=== PATIENT | male | born 1940 ===

== ENCOUNTER 2017-01-06 18:02 | Inpatient (IN) | payer MEDICARE, MEDICAID ==
[2017-01-06 18:03] VITALS: BMI 23.2
[2017-01-06] MEDS ORDERED: (Novolin R) Insulin Human Regular 100 units/ml vial ONE ×3 (18:56→22:50)
[2017-01-06] MEDS ORDERED: Sodium Chloride 0.9% 1,000 ML ONE (18:56)
[2017-01-06 18:57] LABS: BASO % 0.1 % (0.0-2.0); EOS # 0.3 K/uL (0.0-0.7); EOS % 2.1 % (0.0-4.0); HEMATOCRIT 31.6 % (35.0-51.0); LYMPH # 2.1 K/uL (1.0-4.3); LYMPH % 15.9 % (20.0-40.0); MEAN CORPUSCULAR HEMOGLOBIN 23.6 pg (27.0-31.0); MEAN CORPUSCULAR HGB CONC 30.9 g/dL (33.0-37.0); MEAN PLATELET VOLUME 8.9 fL (7.2-11.7); MONO # 0.8 K/uL (0.0-0.8); MONO % 6.2 % (0.0-10.0); RED CELL DISTRIBUTION WIDTH 16.2 % (11.5-14.5)
[2017-01-06 19:00] LABS: MEAN CELL VOLUME 76.4 fL (80.0-94.0)
[2017-01-06 19:06] LABS: CHLORIDE 104 mmol/L (98-107); POTASSIUM 4.1 mmol/L (3.6-5.2); SODIUM 133 mmol/L (132-148)
[2017-01-06 19:08] LABS: BILIRUBIN,TOTAL 0.3 mg/dL (0.2-1.3); GFR AFRICAN-AMERICAN > 60
[2017-01-06 19:09] LABS: ALB/GLOB RATIO 1.2 (1.0-2.1); ALKALINE PHOSPHATASE 58 U/L (38-126); ALT/SGPT 32 U/L (21-72); AST/SGOT 18 U/L (17-59); BLOOD UREA NITROGEN 15 mg/dL (9-20); CALCIUM 8.7 mg/dl (8.6-10.4); CARBON DIOXIDE 15 mmol/L (22-30); TOTAL PROTEIN 7.7 g/dL (6.3-8.3)
[2017-01-06] MEDS ORDERED: Sodium Chloride 0.9% 500 ML IV ONE (19:13)
--- NOTE | 2017-01-06 19:17 | C.PDOC ---
History Of Present Illness 76 y/o male with PMHx of DM presents to ED for evaluation status post syncope episode. As per family at bedside patient was shopping at [facility] when he had a syncope episode. Patient is insulin dependent and at ED patient complaints of headache and blurry vision, accucheck was >400. Patient denies any symptoms prior to syncope episode and currently denies chest pain, nausea, vomiting, diarrhea, abdominal pain or any other complaints at this time. Chief Complaint (Nursing): Syncope History Per: Patient, Family History/Exam Limitations: language barrier Onset/Duration Of Symptoms: Hrs Current Symptoms Are (Timing): Still Present Past Medical History Reviewed: Historical Data, Nursing Documentation, Vital Signs Vital Signs: Last Vital Signs Temp 97.2 F L 01/07/17 00:38 Pulse 75 01/07/17 00:38 Resp 20 01/07/17 00:38 BP 165/83 H 01/07/17 00:38 Pulse Ox 100 01/07/17 00:38 - Medical History PMH: HTN, Hypothyroidism (?) Surgical History: No Surg Hx - [facility] Procedures CATARAC PHACOEMULS/ASPIR (10/04/12) CIRCUMCISION (10/17/14) INSERT LENS AT CATAR EXT (10/04/12) Family History: States: No Known Family Hx - Social History Hx Alcohol Use: Yes Hx Substance Use: No - Immunization History Hx Tetanus Toxoid Vaccination: No Hx Influenza Vaccination: No Hx Pneumococcal Vaccination: No Review Of Systems Except As Marked, All Systems Reviewed And Found Negative. Eyes: Positive for: Vision Change Gastrointestinal: Negative for: Nausea, Vomiting Neurological: Positive for: Headache Physical Exam - Physical Exam Appears: Non-toxic, No Acute Distress Skin: Normal Color, Warm, Dry, No Rash Head: Atraumatic, Normacephalic Eye(s): bilateral: Other ((+)nystagmus. (+)bilateral cataracts ) Oral Mucosa: Moist Tongue: Normal Appearing Lips: Normal Appearing Neck: Normal ROM, Supple Cardiovascular: Rhythm Regular Respiratory: Normal Breath Sounds, No Rales, No Rhonchi, No Wheezing, Other (CTA ) Gastrointestinal/Abdominal: Bowel Sounds (active), Soft, No Tenderness, No Guarding, No Rebound Extremity: Normal ROM, Capillary Refill (<2 seconds) Neurological/Psych: Oriented x3, Normal Speech, Normal Cranial Nerves, Normal Motor (5/5 ), Normal Sensation ED Course And Treatment - Laboratory Results Result Diagrams: 01/06/17 18:52 01/06/17 18:52 ECG: Interpreted By Me ECG Interpretation: Normal, No Acute Changes Interpretation Of ECG: q waves to 3,Avf c/w old IWMI Rate From EC O2 Sat by Pulse Oximetry: 100 (RA) Pulse Ox Interpretation: Normal - Radiology CXR: Interpreted by Me, Viewed By Me CXR Interpretation: Yes: Cardiomegaly (Mild) - CT Scan/US Head Other Rad Studies (CT/US): Interpreted By Me, Read By Radiologist CT/US Interpretation: IMPRESSION: 1. Nonspecific white matter changes. Acute infarction may be CT occult within first 24 hours. If a. focal deficit persists , consider followup CT or MRI for further evaluation. 2. Incidental/non-acute findings are described above. Angio Chest Other Rad Studies (CT/US): Interpreted By Me, Read By Radiologist CT/US Interpretation: IMPRESSION: 1. No definite CT evidence of pulmonary embolism. 2. Incidental/non-acute findings are described above. Medical Decision Making Medical Decision Making: Impression: Plan: CT scan Head, IV fluids, Blood work, UA, ECG, CXR Progress: Review of labs Mild leukocytosis , mild anemia, elevated blood glucose 417 with normal Anion gap CT chest ordered for pulmonary embolism rule out since he had syncopal episode and D-dimer is elevated Disposition - Disposition Disposition: HOSPITALIZED Disposition Time: 00:41 Condition: FAIR - Clinical Impression Clinical Impression: Syncope, Vertigo - Scribe Statement The provider has reviewed the documentation as recorded by the Melvin Ellison All medical record entries made by the Melvin were at my direction and personally dictated by me. I have reviewed the chart and agree that the record accurately reflects my personal performance of the history, physical exam, medical decision making, and the department course for this patient. I have also personally directed, reviewed, and agree with the discharge instructions and disposition. Decision To Admit - Pt Status Changed To: Hospital Disposition Of: Inpatient - Admit Certification Admit to Inpatient:: After my assessment, the patient will require hospitalization for at least two midnights. This is because of the severity of symptoms shown, intensity of services needed, and/or the medical risk in this patient being treated as an outpatient. - InPatient: Physician Admission Certification: I certify that this patient requires 2 or more midnights of care for the following reason:: syncope,vertigo,hyperglycemia - . Bed Request Type: Telemetry Admitting Physician: Fabiana Chávez Patient Diagnosis: Vertigo, Syncope
--- NOTE | 2017-01-06 19:18 | C.PDOC ---
Chief Complaint (Nursing): Syncope Past Medical History Vital Signs: Last Vital Signs Temp 97.5 F L 01/06/17 18:08 Pulse 94 H 01/06/17 18:08 Resp 20 01/06/17 18:08 BP 208/107 H 01/06/17 18:08 Pulse Ox 100 01/06/17 18:08 - Medical History PMH: HTN, Hypothyroidism (?) Denies: Chronic Kidney Disease - [facility] Procedures CATARAC PHACOEMULS/ASPIR (10/04/12) CIRCUMCISION (10/17/14) INSERT LENS AT CATAR EXT (10/04/12) - Social History Hx Alcohol Use: Yes Hx Substance Use: No - Immunization History Hx Tetanus Toxoid Vaccination: No Hx Influenza Vaccination: No Hx Pneumococcal Vaccination: No ED Course And Treatment - Laboratory Results Result Diagrams: 01/06/17 18:52 O2 Sat by Pulse Oximetry: 100 Disposition - Disposition
[2017-01-06 19:22] LABS: GLUCOSE,RANDOM 417 mg/dL (75-110)
[2017-01-06] MEDS ORDERED: (Novolin R) Insulin Human Regular 100 units/ml vial IV ONE ×4 (19:41→22:28)
--- NOTE | 2017-01-06 19:57 | CT ---
EXAM: CT Head Without Intravenous Contrast CLINICAL HISTORY: 76 years old, male; Condition or disease; Headache; Headache not specified TECHNIQUE: Axial computed tomography images of the head/brain without intravenous contrast. All CT scans at this facility use one or more dose reduction techniques, viz.: automated exposure control; ma/kV adjustment per patient size (including targeted exams where dose is matched to indication; i.e. head); or iterative reconstruction technique. Coronal reformatted images were created and reviewed. COMPARISON: No relevant prior studies available. FINDINGS: Brain: Moderate atrophy. No intracranial hemorrhage. No mass. Few scattered subtle foci of decreased attenuation within periventricular/subcortical white matter. No definite edema. Ventricles: No hydrocephalus. Bones/joints: No acute fracture. Soft tissues: Unremarkable. Vasculature: Mild atherosclerotic disease of intracranial arteries. Sinuses: Scattered minimal to mild mucosal thickening. Mastoid air cells: No mastoid effusion. Orbits: Unremarkable as visualized. IMPRESSION: 1. Nonspecific white matter changes. Acute infarction may be CT occult within first 24 hours. If a focal deficit persists, consider followup CT or MRI for further evaluation. 2. Incidental/non-acute findings are described above.
[2017-01-06] MEDS ORDERED: Iodixanol 320 MG/ML 100 ML BOTTLE IV ONE (20:14)
[2017-01-06] MEDS ORDERED: Metoprolol Succinate 25 mg XL Tab PO STA (21:05)
[2017-01-06 22:13] LABS: RBC URINE < 1 /hpf (0-3); URINE BILIRUBIN NEGATIVE (NEGATIVE); URINE BLOOD TRACE (NEGATIVE); URINE COLOR Straw (YELLOW); URINE GLUCOSE (UA) 3+ mg/dL (Normal); URINE KETONE NEGATIVE (NEGATIVE); URINE LEUKOCYTE ESTERASE NEG Leu/uL (Negative); URINE PROTEIN 1+ mg/dL (NEGATIVE); URINE UROBILINOGEN NORMAL mg/dL (0.2-1.0); WBC URINE < 1 /hpf (0-5)
--- NOTE | 2017-01-06 22:13 | CT ---
EXAM: CT Angiography Chest With Intravenous Contrast CLINICAL HISTORY: 76 years old, male; Pain; Chest wall pain; Additional info: Syncope, ddimer elevation TECHNIQUE: Axial computed tomographic angiography images of the chest with intravenous contrast using pulmonary embolism protocol. All CT scans at this facility use one or more dose reduction techniques, viz.: automated exposure control; ma/kV adjustment per patient size (including targeted exams where dose is matched to indication; i.e. head); or iterative reconstruction technique. MIP reconstructed images were created and reviewed. Coronal and sagittal reformatted images were created and reviewed. CONTRAST: 100 mL of V ISIPAQUE 320- administered intravenously. COMPARISON: No relevant prior studies available. FINDINGS: Limitations: Motion artifact - mild to moderate. Pulmonary arteries: No definite pulmonary embolism. Aorta: Minimal atherosclerotic disease. No aneurysm. Lungs: Mild atelectasis/scarring. No consolidation. Pleural space: No significant effusion. No pneumothorax. Heart: No cardiomegaly. No significant pericardial effusion. Valvular calcifications. Bones/joints: Moderate compression deformity L1 vertebral body, chronic. No acute fracture. No dislocation. Soft tissues: Unremarkable. Lymph nodes: No pathologically enlarged lymph nodes. Adrenals: Probable adenomatous hypertrophy of adrenal glands. IMPRESSION: 1. No definite CT evidence of pulmonary embolism. 2. Incidental/non-acute findings are described above.
[2017-01-07] MEDS: Levothyroxine 100 MCG TAB PO SCH (05:42)
--- NOTE | 2017-01-07 07:46 | RAD ---
PROCEDURE: CHEST RADIOGRAPH, 1 VIEW HISTORY: chest pain COMPARISON: Chest radiographs 10/10/2014. FINDINGS: LUNGS: No acute infiltrate bilaterally. PLEURA: No pneumothorax or pleural fluid seen. CARDIOVASCULAR: Normal. OSSEOUS STRUCTURES: No significant abnormalities. VISUALIZED UPPER ABDOMEN: Normal. OTHER FINDINGS: None. IMPRESSION: No interval acute cardiopulmonary disease appreciated.
[2017-01-07] MEDS: Enoxaparin 40 mg Syringe SC SCH (09:55)
[2017-01-07] MEDS ORDERED: Pantoprazole 20 mg EC Tab PO SCH (10:00)
[2017-01-07 12:30] LABS: RBC URINE 3 /hpf (0-3); URINE BILIRUBIN NEGATIVE (NEGATIVE); URINE BLOOD 1+ (NEGATIVE); URINE COLOR Yellow (YELLOW); URINE GLUCOSE (UA) 3+ mg/dL (Normal); URINE KETONE NEGATIVE (NEGATIVE); URINE LEUKOCYTE ESTERASE NEG Leu/uL (Negative); URINE PROTEIN 1+ mg/dL (NEGATIVE); URINE UROBILINOGEN NORMAL mg/dL (0.2-1.0); WBC URINE 1 /hpf (0-5)
--- NOTE | 2017-01-07 13:33 | CP.PCM.CON ---
History of Present Illness - History of Present Illness History of Present Illness: 76 y/o male with PMHx of DM presents to ED for evaluation status post syncope episode. As per family at bedside patient was shopping at [facility] when he had a syncope episode. Patient is insulin dependent and at ED patient complaints of headache and blurry vision, accucheck was >400. Patient denies any symptoms prior to syncope episode and currently denies chest pain, nausea, vomiting, diarrhea, abdominal pain or any other complaints at this time. Patient is [place] speaking [place]Citizen [place]' male; currently in MRI could not be examined Per : usually active for age, only medical problem is DM with baseline sugars in 200-250 range: Had normal lunch that day and walked to [facility] and while standing in grocery store felt nausea, vomited x1 and passed out: denied any CP or SOB, normal recovery but sugars reported 400's. PMHX: DM chronic labile, HTN chronic labile, LIPIDS chronic on Rx PSHX: cataracts, no PCI or CABG SOCHX: no tobacco, no substance abuse ROS: no fevers, chills, constitutional symptoms, all 12 systems neg except for HPI. Physical exam: not performed as patient in MRI Past Patient History - Past Medical History & Family History Past Medical History?: Yes - Past Social History Smoking Status: Unknown If Ever Smoked - CARDIAC Hx Cardiac Disorders: Yes Hx Hypertension: Yes - PULMONARY Hx Respiratory Disorders: No - NEUROLOGICAL Hx Neurological Disorder: No - HEENT Hx HEENT Problems: Yes Hx Cataracts: Yes (BILAT. BILAT WITH IOL) - RENAL Hx Chronic Kidney Disease: No - ENDOCRINE/METABOLIC Hx Hypothyroidism: Yes - HEMATOLOGICAL/ONCOLOGICAL Hx Blood Disorders: No - INTEGUMENTARY Hx Dermatological Problems: No - MUSCULOSKELETAL/RHEUMATOLOGICAL Hx Musculoskeletal Disorders: No Hx Falls: No - GASTROINTESTINAL Hx Gastrointestinal Disorders: No - GENITOURINARY/GYNECOLOGICAL Hx Genitourinary Disorders: Yes Other/Comment: DX: PHIMOSIS - PSYCHIATRIC Hx Psychophysiologic Disorder: Yes Hx Substance Use: No - SURGICAL HISTORY Hx Surgeries: Yes Hx Cataract Extraction: Yes (BILAT. IOL IMPLANTS) - ANESTHESIA Hx Anesthesia: Yes Hx Anesthesia Reactions: No Hx Malignant Hyperthermia: No Meds Allergies/Adverse Reactions: Allergies Allergy/AdvReac Type Severity Reaction Status Date / Time No Known Allergies Allergy Verified 01/06/17 18:11 - Medications Medications: Current Medications Amlodipine Besylate (Norvasc) 10 mg PO DAILY [facility] Aspirin (Aspirin Chewable) 81 mg PO DAILY [facility] Enoxaparin Sodium (Lovenox) 40 mg SC DAILY [facility] Last Admin: 01/07/17 09:55 Dose: 40 mg Glimepiride (Amaryl) 2 mg PO TID [facility] Last Admin: 01/07/17 10:00 Dose: Not Given Home Med (Fosamax) 70 mg PO QWK [facility] Home Med (Liraglutide [Victoza 2-Jorje]) 1.2 mg SQ DAILY [facility] Sodium Chloride (Sodium Chloride 0.9%) 1,000 mls @ 40 mls/hr IV .Q24H [facility] Insulin Glargine (Lantus) 30 unit SC HS [facility] Levothyroxine Sodium (Synthroid) 100 mcg PO DAILY@0630 [facility] Last Admin: 01/07/17 05:42 Dose: 100 mcg Losartan Potassium (Cozaar) 25 mg PO DAILY [facility] Metformin HCl (Glucophage) 1,000 mg PO BID [facility] Last Admin: 01/07/17 10:00 Dose: Not Given Metoprolol Succinate (Toprol Xl) 25 mg PO DAILY [facility] Multivitamins (Hexavitamin) 1 tab PO DAILY [facility] Ondansetron HCl (Zofran Inj) 4 mg IVP Q8H PRN PRN Reason: Nausea/Vomiting Last Admin: 01/07/17 09:52 Dose: 4 mg Pantoprazole Sodium (Protonix Inj) 40 mg IVP DAILY [facility] Last Admin: 01/07/17 10:35 Dose: 40 mg Rosuvastatin Calcium (Crestor) 10 mg PO [facility] Results - Vital Signs Recent Vital Signs: Last Vital Signs Temp 97.5 F L 01/07/17 08:07 Pulse 69 01/07/17 08:07 Resp 20 01/07/17 08:07 BP 173/80 H 01/07/17 08:07 Pulse Ox 99 01/07/17 08:07 - Labs Result Diagrams: 01/06/17 18:52 01/06/17 18:52 Labs: Laboratory Results - last 24 hr 01/06/17 01/06/17 01/06/17 18:16 18:52 18:52 WBC 13.0 H RBC 4.14 L Hgb 9.8 L D Hct 31.6 L MCV 76.4 L D MCH 23.6 L MCHC 30.9 L RDW 16.2 H Plt Count 298 MPV 8.9 Neut % (Auto) 75.7 H Lymph % (Auto) 15.9 L [place] % (Auto) 6.2 Eos % (Auto) 2.1 Baso % (Auto) 0.1 Neut # 9.8 H Lymph # 2.1 [place] # 0.8 Eos # 0.3 Baso # 0.0 D-Dimer, Quantitative Sodium 133 Potassium 4.1 Chloride 104 Carbon Dioxide 15 L Anion Gap 18 BUN 15 Creatinine 1.0 Est GFR ( Amer) > 60 Est GFR (Non-Af Amer) > 60 POC Glucose (mg/dL) 417 H* Random Glucose 417 H* D Calcium 8.7 Total Bilirubin 0.3 AST 18 ALT 32 Alkaline Phosphatase 58 Total Creatine Kinase CK-MB (Mass) Troponin I < 0.0120 Troponin I, Quant NT-Pro-B Natriuret Pep Total Protein 7.7 Albumin 4.1 Globulin 3.5 Albumin/Globulin Ratio 1.2 Urine Color Urine Clarity Urine pH Ur Specific [place] Urine Protein Urine Glucose (UA) Urine Ketones Urine Blood Urine Nitrate Urine Bilirubin Urine Urobilinogen Ur Leukocyte Esterase Urine WBC (Auto) Urine RBC (Auto) 01/06/17 01/06/17 01/06/17 19:24 19:24 19:54 WBC RBC Hgb Hct MCV MCH MCHC RDW Plt Count MPV Neut % (Auto) Lymph % (Auto) [place] % (Auto) Eos % (Auto) Baso % (Auto) Neut # Lymph # [place] # Eos # Baso # D-Dimer, Quantitative 381 H Sodium Potassium Chloride Carbon Dioxide Anion Gap BUN Creatinine Est GFR ( Amer) Est GFR (Non-Af Amer) POC Glucose (mg/dL) 285 H Random Glucose Calcium Total Bilirubin AST ALT Alkaline Phosphatase Total Creatine Kinase CK-MB (Mass) Troponin I Troponin I, Quant NT-Pro-B Natriuret Pep 198 Total Protein Albumin Globulin Albumin/Globulin Ratio Urine Color Urine Clarity Urine pH Ur Specific [place] Urine Protein Urine Glucose (UA) Urine Ketones Urine Blood Urine Nitrate Urine Bilirubin Urine Urobilinogen Ur Leukocyte Esterase Urine WBC (Auto) Urine RBC (Auto) 01/06/17 01/06/17 01/06/17 21:10 22:02 22:26 WBC RBC Hgb Hct MCV MCH MCHC RDW Plt Count MPV Neut % (Auto) Lymph % (Auto) [place] % (Auto) Eos % (Auto) Baso % (Auto) Neut # Lymph # [place] # Eos # Baso # D-Dimer, Quantitative Sodium Potassium Chloride Carbon Dioxide Anion Gap BUN Creatinine Est GFR ( Amer) Est GFR (Non-Af Amer) POC Glucose (mg/dL) 346 H 347 H Random Glucose Calcium Total Bilirubin AST ALT Alkaline Phosphatase Total Creatine Kinase CK-MB (Mass) Troponin I Troponin I, Quant NT-Pro-B Natriuret Pep Total Protein Albumin Globulin Albumin/Globulin Ratio Urine Color Straw Urine Clarity Clear Urine pH 5.0 Ur Specific [place] 1.027 Urine Protein 1+ H Urine Glucose (UA) 3+ H Urine Ketones Negative Urine Blood Trace H Urine Nitrate Negative Urine Bilirubin Negative Urine Urobilinogen Normal Ur Leukocyte Esterase Neg Urine WBC (Auto) < 1 Urine RBC (Auto) < 1 01/06/17 01/07/17 01/07/17 23:59 00:09 02:23 WBC RBC Hgb Hct MCV MCH MCHC RDW Plt Count MPV Neut % (Auto) Lymph % (Auto) [place] % (Auto) Eos % (Auto) Baso % (Auto) Neut # Lymph # [place] # Eos # Baso # D-Dimer, Quantitative Sodium Potassium Chloride Carbon Dioxide Anion Gap BUN Creatinine Est GFR ( Amer) Est GFR (Non-Af Amer) POC Glucose (mg/dL) 238 H 259 H Random Glucose Calcium Total Bilirubin AST ALT Alkaline Phosphatase Total Creatine Kinase 89 CK-MB (Mass) 1.61 Troponin I Troponin I, Quant < 0.0120 NT-Pro-B Natriuret Pep Total Protein Albumin Globulin Albumin/Globulin Ratio Urine Color Urine Clarity Urine pH Ur Specific [place] Urine Protein Urine Glucose (UA) Urine Ketones Urine Blood Urine Nitrate Urine Bilirubin Urine Urobilinogen Ur Leukocyte Esterase Urine WBC (Auto) Urine RBC (Auto) 01/07/17 01/07/17 01/07/17 06:33 07:38 11:53 WBC RBC Hgb Hct MCV MCH MCHC RDW Plt Count MPV Neut % (Auto) Lymph % (Auto) [place] % (Auto) Eos % (Auto) Baso % (Auto) Neut # Lymph # [place] # Eos # Baso # D-Dimer, Quantitative Sodium Potassium Chloride Carbon Dioxide Anion Gap BUN Creatinine Est GFR ( Amer) Est GFR (Non-Af Amer) POC Glucose (mg/dL) 264 H 296 H Random Glucose Calcium Total Bilirubin AST ALT Alkaline Phosphatase Total Creatine Kinase 136 CK-MB (Mass) 1.80 Troponin I Troponin I, Quant < 0.0120 NT-Pro-B Natriuret Pep Total Protein Albumin Globulin Albumin/Globulin Ratio Urine Color Urine Clarity Urine pH Ur Specific [place] Urine Protein Urine Glucose (UA) Urine Ketones Urine Blood Urine Nitrate Urine Bilirubin Urine Urobilinogen Ur Leukocyte Esterase Urine WBC (Auto) Urine RBC (Auto) 01/07/17 12:08 WBC RBC Hgb Hct MCV MCH MCHC RDW Plt Count MPV Neut % (Auto) Lymph % (Auto) [place] % (Auto) Eos % (Auto) Baso % (Auto) Neut # Lymph # [place] # Eos # Baso # D-Dimer, Quantitative Sodium Potassium Chloride Carbon Dioxide Anion Gap BUN Creatinine Est GFR ( Amer) Est GFR (Non-Af Amer) POC Glucose (mg/dL) Random Glucose Calcium Total Bilirubin AST ALT Alkaline Phosphatase Total Creatine Kinase CK-MB (Mass) Troponin I Troponin I, Quant NT-Pro-B Natriuret Pep Total Protein Albumin Globulin Albumin/Globulin Ratio Urine Color Yellow Urine Clarity Clear Urine pH 5.0 Ur Specific [place] 1.025 Urine Protein 1+ H Urine Glucose (UA) 3+ H Urine Ketones Negative Urine Blood 1+ H Urine Nitrate Negative Urine Bilirubin Negative Urine Urobilinogen Normal Ur Leukocyte Esterase Neg Urine WBC (Auto) 1 Urine RBC (Auto) 3 - EKG Data EKG Interpreted by: Myself EKG shows normal: Sinus rhythm - Imaging and Cardiology Chest x-ray Status: Image reviewed by me (No infiltrate, normal heart size) Assessment & Plan - Assessment and Plan (Free Text) Assessment: Syncope possible vagal mediated, vertigo or due to labile hyperglycemia/ autonomic dysfunction > No arrythmia on TELE > No acute ischemic changes on EKG > Mild anemia, low MCV on CBC > VT ruled out > CT head: no acute pathology > CXR: no signs of CHF or infection > BP is elevated Suggest echo to eval cardiac structure and function f/u MRI results Needs BP and DM control ---> in losartan to 50 daily and consider hydralazine...will follow echo results. Amlodipine Besylate (Norvasc) 10 mg PO DAILY [facility] Aspirin (Aspirin Chewable) 81 mg PO DAILY [facility] Enoxaparin Sodium (Lovenox) 40 mg SC DAILY [facility] Last Admin: 01/07/17 09:55 Dose: 40 mg Glimepiride (Amaryl) 2 mg PO TID [facility] Last Admin: 01/07/17 10:00 Dose: Not Given Home Med (Fosamax) 70 mg PO QWK [facility] Home Med (Liraglutide [Victoza 2-Jorje]) 1.2 mg SQ DAILY [facility] Sodium Chloride (Sodium Chloride 0.9%) 1,000 mls @ 40 mls/hr IV .Q24H [facility] Insulin Glargine (Lantus) 30 unit SC HS [facility] Levothyroxine Sodium (Synthroid) 100 mcg PO DAILY@0630 [facility] Last Admin: 01/07/17 05:42 Dose: 100 mcg Losartan Potassium (Cozaar) 25 mg PO DAILY [facility] Metformin HCl (Glucophage) 1,000 mg PO BID [facility] Last Admin: 01/07/17 10:00 Dose: Not Given Metoprolol Succinate (Toprol Xl) 25 mg PO DAILY [facility] Multivitamins (Hexavitamin) 1 tab PO DAILY [facility] Ondansetron HCl (Zofran Inj) 4 mg IVP Q8H PRN PRN Reason: Nausea/Vomiting Last Admin: 01/07/17 09:52 Dose: 4 mg Pantoprazole Sodium (Protonix Inj) 40 mg IVP DAILY [facility] Last Admin: 01/07/17 10:35 Dose: 40 mg Rosuvastatin Calcium (Crestor) 10 mg PO HS [facility]
[2017-01-07] MEDS: Sodium Chloride 0.9% 1,000 ML IV SCH (13:45)
--- NOTE | 2017-01-07 14:34 | MRI ---
PROCEDURE: MRI BRAIN WITHOUT CONTRAST HISTORY: CVA/syncope COMPARISON: Noncontrast head CT performed on 01/06/2017 TECHNIQUE: Multiplanar, multisequence MR images of the brain were obtained without intravenous contrast enhancement. FINDINGS: HEMORRHAGE: None DWI: There is a large area of restricted diffusion in the almost entirely involving the left cerebellar hemisphere with relative sparing of the superior deep white matter. BRAIN PARENCHYMA: There is subtle T2/FLAIR hyperintense signal corresponding to the area of restricted diffusion with effacement of the cerebellar folia consistent with associated edema. There is no mass effect or midline shift. There is no extra-axial fluid collection. The midline sagittal structures are normal VENTRICLES: There is moderate age-related global parenchymal volume loss and proportionate enlargement of the ventricles and cortical sulci. CRANIUM: There is normal bone marrow signal pattern. ORBITS: Grossly unremarkable. PARANASAL SINUSES/MASTOIDS: There is moderate mucosal thickening in the maxillary sinuses. The remaining included paranasal sinuses and mastoid air cells are predominantly clear. VASCULAR SYSTEM: Skull base flow voids intact. OTHER FINDINGS: None. 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 Associated did mild vasogenic edema without mass effect or midline shift. No hydrocephalus. Moderate age-related global parenchymal volume loss. Critical findings were discussed with nurse Mikayla Laughlin on 01/07/2017 at 2:30 p.m..
[2017-01-07] MEDS: Multiple Vitamins Tab PO SCH (15:10)
[2017-01-07] MEDS: Metoprolol Succinate 25 mg XL Tab PO SCH (15:10)
[2017-01-07] MEDS: Apap-Butalbital-Caffeine 325-50-40mg Tab PO PRN (17:17)
[2017-01-07 17:26] LABS: CHOLESTEROL 112 mg/dL (0-199)
--- NOTE | 2017-01-07 18:30 | CON ---
DATE: 01/07/2017 CHIEF COMPLAINT: Syncope. HISTORY OF PRESENT ILLNESS: A 76-year-old man with history of type 2 diabetes mellitus, uncontrolled; hypertension; dyslipidemia; who presented with syncopal episode while he was shopping at [facility]. He had a syncopal episode. The patient was independent, came to the hospital with diffuse pressure headache, blurry vision. Accu-Chek was more than 400. Initial CAT scan showed no intracranial abnormalities. He had a MRI of the brain which showed an acute left cerebellar infarct which was likely secondary to diffuse atherosclerotic disease and uncontrolled diabetes and high blood pressure. He has some mild dysmetria but headache is much better, hope he is getting Fioricet for his headaches. Cardiology on board. Echocardiogram ordered. A1c is pending. PAST MEDICAL HISTORY: Dyslipidemia, hypertension, and type 2 diabetes. REVIEW OF SYSTEMS: A 14-point review of system is negative except as in the HPI. ALLERGIES: NO KNOWN DRUG ALLERGIES. SOCIAL HISTORY: No illicit drug use, smoking or EtOH abuse. FAMILY HISTORY: Noncontributory MEDICATIONS: Reviewed via nurse reconciliation sheet. PHYSICAL EXAMINATION: VITAL SIGNS: Temperature 97.4, pulse rate 77, blood pressure 170/92, respiratory rate of 18, oxygen saturation 99% via room air. GENERAL: The patient is sitting up in bed, in no acute distress. HEENT: Atraumatic and normocephalic. PERRLA. Extraocular muscles are intact. NECK: Supple. No JVD. No adenopathy noted. LUNGS: Clear to auscultation. No adventitious sounds. HEART: S1 and S2, normal rate and rhythm. No murmurs, rubs, or gallops. ABDOMEN: Soft, nontender, and nondistended. Bowel sounds are present. EXTREMITIES: No clubbing. No cyanosis. Peripheral pulses are 2+. NEUROLOGIC: The patient is alert and oriented to person, place, month, and year. Speech is fluent without any errors. Cranial nerves II through XII are intact. Motor exam: Moves all extremities equally. No pronator drift seen. Sensory exam: Decreased light touch, pinprick, up to calves bilaterally, decreased vibration of the toes. DTRs are 2+ throughout, 1 at the ankles. Coordination: Mild dissymmetry on the left upper extremity. [id number] otherwise intact. Gait deferred for now. LABORATORY DATA: Today's blood sugar is 296. ASSESSMENT AND PLAN: This is a 76-year-old male with past medical history of type 2 diabetes mellitus, uncontrolled; dyslipidemia; hypertension, who had a syncopal episode while shopping at [place]. His syncope is likely secondary to a possible arrhythmia verses vasovagal mediated, and his headaches and blurry vision are secondary to acute left cerebellar infarct with minimal mass effect from diffuse atherosclerotic disease such as uncontrolled diabetes, dyslipidemia, and hypertension. At this time, I recommend: 1. Keep blood pressures now from this 24 hours to get a blood pressure between 120 to 130 mmHg. 2. Aspirin 81 and Plavix 75 mg p.o. daily in addition to Lipitor 80 mg p.o. daily for stroke prevention. 3. Echocardiogram. Follow with cardiology, possibly need a loop recorder placed to evaluate for any arrhythmia given his acute infract. 4. Acute rehab likely PT, OT, speech, and physical therapy. 5. Get a hemoglobin A1c and keep blood pressures between 140 to 180. Diabetic education and diabetic diet indicated. Thank you for this consult. Jc Guerra MD
--- NOTE | 2017-01-07 19:14 | CARD ---
APPROVED REPORT EXAM: Two-dimensional and M-mode echocardiogram with Doppler and color Doppler. Other Information Quality : GoodRhythm : INDICATION Dyspnea Syncope RISK FACTORS Hypertension 2D DIMENSIONS IVSd1.1 (0.7-1.1cm)LVDd4.5 (3.9-5.9cm) PWd1.2 (0.7-1.1cm)LVDs3.3 (2.5-4.0cm) FS (%) 26.6 %LVEF (%)52.2 (>50%) M-Mode DIMENSIONS Left Atrium (MM)3.09 (2.5-4.0cm)Aortic Root3.33 (2.2-3.7cm) Aortic Cusp Exc.1.80 (1.5-2.0cm) Mitral Valve MV E Xjtuqwgz50.8cm/sMV A Iitsppnh498.3cm/sE/A ratio0.6 TDI E/Lateral E'0.0E/Medial E'0.0 Tricuspid Valve TR Peak [id number]/sTR Peak [id number] LEFT VENTRICLE The left ventricle is normal size. There is normal left ventricular wall thickness. The left ventricular function is normal. The left ventricular ejection fraction is within the normal range. There is normal LV segmental wall motion. Transmitral Doppler flow pattern is abnormal. RIGHT VENTRICLE The right ventricle is normal size. ATRIA The left atrium size is normal. The right atrium size is normal. AORTIC VALVE The aortic valve is normal in structure. MITRAL VALVE Mitral regurgitation is trace to mild. TRICUSPID VALVE There is mild tricuspid regurgitation. <Conclusion> Normal LV systoli cufnction. Diastoli cdysfunction. Trace to mild MR. Mild TR. Normal chamber size.
--- NOTE | 2017-01-07 21:37 | CP.PCM.PN ---
Subjective - Date & Time of Evaluation Date of Evaluation: 01/07/17 Objective - Vital Signs/Intake and Output Vital Signs (last 24 hours): Temp Pulse Resp BP Pulse Ox 97.4 F L 77 18 140/70 99 01/07/17 16:00 01/07/17 16:00 01/07/17 16:00 01/07/17 20:00 01/07/17 16:00 Intake and Output: 01/07/17 01/08/17 18:59 06:59 Intake Total 160 Output Total 900 Balance -740 - Medications Medications: Current Medications Acetaminophen/Butalbital/Caffeine (Fioricet) 1 tab PO Q4 PRN PRN Reason: pain Last Admin: 01/07/17 17:17 Dose: 1 tab Amlodipine Besylate (Norvasc) 10 mg PO DAILY [facility] Aspirin (Aspirin Chewable) 81 mg PO DAILY [facility] Last Admin: 01/07/17 16:00 Dose: 81 mg Aspirin (Aspirin Chewable) 81 mg PO DAILY [facility] Clopidogrel Bisulfate (Plavix) 75 mg PO DAILY [facility] Enoxaparin Sodium (Lovenox) 40 mg SC DAILY [facility] Last Admin: 01/07/17 09:55 Dose: 40 mg Famotidine (Pepcid) 20 mg PO BID [facility] Glimepiride (Amaryl) 2 mg PO TID [facility] Last Admin: 01/07/17 17:18 Dose: 2 mg Home Med (Fosamax) 70 mg PO QWK [facility] Home Med (Liraglutide [Victoza 2-Jorje]) 1.2 mg SQ DAILY [facility] Sodium Chloride (Sodium Chloride 0.9%) 1,000 mls @ 40 mls/hr IV .Q24H [facility] Last Admin: 01/07/17 13:45 Dose: 40 mls/hr Insulin Glargine (Lantus) 30 unit SC HS [facility] Levothyroxine Sodium (Synthroid) 100 mcg PO DAILY@0630 [facility] Last Admin: 01/07/17 05:42 Dose: 100 mcg Losartan Potassium (Cozaar) 25 mg PO DAILY [facility] Last Admin: 01/07/17 15:10 Dose: 25 mg Metformin HCl (Glucophage) 1,000 mg PO BID [facility] Last Admin: 01/07/17 17:18 Dose: 1,000 mg Metoprolol Succinate (Toprol Xl) 25 mg PO DAILY [facility] Last Admin: 01/07/17 15:10 Dose: 25 mg Multivitamins (Hexavitamin) 1 tab PO DAILY [facility] Last Admin: 01/07/17 15:10 Dose: 1 tab Ondansetron HCl (Zofran Inj) 4 mg IVP Q8H PRN PRN Reason: Nausea/Vomiting Last Admin: 01/07/17 09:52 Dose: 4 mg Rosuvastatin Calcium (Crestor) 10 mg PO HS [facility] - Labs Labs: 01/06/17 18:52 01/06/17 18:52
--- NOTE | 2017-01-07 21:39 | CP.PCM.HP ---
History of Present Illness - History of Present Illness History of Present Illness: A 76-year-old male with PMHDM, HTN, hypothyroidism presents to the ER for syncope. C/syncopal one episode today. Patient was shopping at [email or web address] when he suddenly had a syncopal attack. Patient fell down, immediately regained consciousness and was able to stand up on his own. Patient is insulin-dependent. C/Oheadache for a few hours. Following the syncopal attack, global, throbbing type, 3/10 in severity, near continuous. C/Oblurring of vision for a few hours. Following the syncopal attack. No C/ chest pain, nausea, vomiting, diarrhea, abdominal pain or any other complaints. Present on Admission - Present on Admission Any Indicators Present on Admission: No Past Patient History - Past Medical History & Family History Past Medical History?: Yes - Past Social History Smoking Status: Unknown If Ever Smoked - CARDIAC Hx Cardiac Disorders: Yes Hx Hypertension: Yes - PULMONARY Hx Respiratory Disorders: No - NEUROLOGICAL Hx Neurological Disorder: No - HEENT Hx HEENT Problems: Yes Hx Cataracts: Yes (BILAT. BILAT WITH IOL) - RENAL Hx Chronic Kidney Disease: No - ENDOCRINE/METABOLIC Hx Hypothyroidism: Yes - HEMATOLOGICAL/ONCOLOGICAL Hx Blood Disorders: No - INTEGUMENTARY Hx Dermatological Problems: No - MUSCULOSKELETAL/RHEUMATOLOGICAL Hx Musculoskeletal Disorders: No Hx Falls: No - GASTROINTESTINAL Hx Gastrointestinal Disorders: No - GENITOURINARY/GYNECOLOGICAL Hx Genitourinary Disorders: Yes Other/Comment: DX: PHIMOSIS - PSYCHIATRIC Hx Psychophysiologic Disorder: Yes Hx Substance Use: No - SURGICAL HISTORY Hx Surgeries: Yes Hx Cataract Extraction: Yes (BILAT. IOL IMPLANTS) - ANESTHESIA Hx Anesthesia: Yes Hx Anesthesia Reactions: No Hx Malignant Hyperthermia: No Meds Home Medications: Home Medication List Medication Instructions Recorded Confirmed Type Acetaminophen/Butalbital/Caf 1 tab PO Q4 PRN tab 01/12/17 Rx [Fioricet] Aspirin [Aspirin Chewable] 81 mg PO DAILY chew 01/12/17 Rx Clopidogrel [Plavix] 75 mg PO DAILY tab 01/12/17 Rx Famotidine [Pepcid] 20 mg PO BID tab 01/12/17 Rx Insulin Glargine, Recombina 30 unit SC HS unit 01/12/17 Rx [Lantus] Levothyroxine [Synthroid] 100 mcg PO DAILY@0630 tab 01/12/17 Rx Meclizine [Meclizine*] 25 mg PO TID tab 01/12/17 Rx Metoprolol Succinate [Toprol XL] 25 mg PO DAILY tab 01/12/17 Rx Multivitamins [Hexavitamin] 1 tab PO DAILY tab 01/12/17 Rx Naproxen [Anaprox DS] 550 mg PO BID PRN tab 01/12/17 Rx Rosuvastatin Calcium [Crestor] 10 mg PO HS tab 01/12/17 Rx amLODIPine [Norvasc] 10 mg PO DAILY tab 01/12/17 Rx Allergies/Adverse Reactions: Allergies Allergy/AdvReac Type Severity Reaction Status Date / Time No Known Allergies Allergy Verified 01/13/17 04:39 Results - Vital Signs Recent Vital Signs: Last Vital Signs Temp 97.4 F L 01/07/17 16:00 Pulse 77 01/07/17 16:00 Resp 18 01/07/17 16:00 BP 140/70 01/07/17 20:00 Pulse Ox 99 01/07/17 16:00 - Labs Result Diagrams: 01/12/17 13:52 01/12/17 13:52 Labs: Laboratory Results - last 24 hr 01/06/17 01/06/17 01/06/17 18:16 21:10 22:02 POC Glucose (mg/dL) 417 H* 346 H Total Creatine Kinase CK-MB (Mass) Troponin I, Quant Triglycerides Cholesterol LDL Cholesterol Direct HDL Cholesterol Urine Color Straw Urine Clarity Clear Urine pH 5.0 Ur Specific [place] 1.027 Urine Protein 1+ H Urine Glucose (UA) 3+ H Urine Ketones Negative Urine Blood Trace H Urine Nitrate Negative Urine Bilirubin Negative Urine Urobilinogen Normal Ur Leukocyte Esterase Neg Urine WBC (Auto) < 1 Urine RBC (Auto) < 1 01/06/17 01/06/17 01/07/17 22:26 23:59 00:09 POC Glucose (mg/dL) 347 H 238 H Total Creatine Kinase 89 CK-MB (Mass) 1.61 Troponin I, Quant < 0.0120 Triglycerides Cholesterol LDL Cholesterol Direct HDL Cholesterol Urine Color Urine Clarity Urine pH Ur Specific [place] Urine Protein Urine Glucose (UA) Urine Ketones Urine Blood Urine Nitrate Urine Bilirubin Urine Urobilinogen Ur Leukocyte Esterase Urine WBC (Auto) Urine RBC (Auto) 01/07/17 01/07/1701/07/17 02:23 06:33 07:38 POC Glucose (mg/dL) 259 H 264 H Total Creatine Kinase 136 CK-MB (Mass) 1.80 Troponin I, Quant < 0.0120 Triglycerides Cholesterol LDL Cholesterol Direct HDL Cholesterol Urine Color Urine Clarity Urine pH Ur Specific [place] Urine Protein Urine Glucose (UA) Urine Ketones Urine Blood Urine Nitrate Urine Bilirubin Urine Urobilinogen Ur Leukocyte Esterase Urine WBC (Auto) Urine RBC (Auto) 01/07/17 01/07/17 01/07/17 11:53 12:08 16:37 POC Glucose (mg/dL) 296 H 280 H Total Creatine Kinase CK-MB (Mass) Troponin I, Quant Triglycerides Cholesterol LDL Cholesterol Direct HDL Cholesterol Urine Color Yellow Urine Clarity Clear Urine pH 5.0 Ur Specific [place] 1.025 Urine Protein 1+ H Urine Glucose (UA) 3+ H Urine Ketones Negative Urine Blood 1+ H Urine Nitrate Negative Urine Bilirubin Negative Urine Urobilinogen Normal Ur Leukocyte Esterase Neg Urine WBC (Auto) 1 Urine RBC (Auto) 3 01/07/17 01/07/17 01/07/17 16:55 16:55 21:14 POC Glucose (mg/dL) 278 H Total Creatine Kinase 165 CK-MB (Mass) 1.76 Troponin I, Quant < 0.0120 Triglycerides 122 Cholesterol 112 LDL Cholesterol Direct 71 HDL Cholesterol 39 Urine Color Urine Clarity Urine pH Ur Specific [place] Urine Protein Urine Glucose (UA) Urine Ketones Urine Blood Urine Nitrate Urine Bilirubin Urine Urobilinogen Ur Leukocyte Esterase Urine WBC (Auto) Urine RBC (Auto)
[2017-01-07] MEDS: (Lantus) Insulin Glargine, Recombinant SC SCH (21:46)
[2017-01-08] MEDS: Levothyroxine 100 MCG TAB PO SCH (06:04)
--- NOTE | 2017-01-08 09:30 | CP.PCM.PN ---
Subjective - Date & Time of Evaluation Date of Evaluation: 01/08/17 Time of Evaluation: 09:33 - Subjective Subjective: EVents reviewed. Require assistance to ambulate to bathroom. Objective - Vital Signs/Intake and Output Vital Signs (last 24 hours): Temp Pulse Resp BP Pulse Ox 98.2 F 83 20 165/88 H 97 01/08/17 08:16 01/08/17 08:16 01/08/17 08:16 01/08/17 08:16 01/08/17 08:16 Intake and Output: 01/08/17 01/08/17 06:59 18:59 Intake Total 940 Output Total 375 Balance 565 - Medications Medications: Current Medications Acetaminophen/Butalbital/Caffeine (Fioricet) 1 tab PO Q4 PRN PRN Reason: pain Last Admin: 01/07/17 17:17 Dose: 1 tab Amlodipine Besylate (Norvasc) 10 mg PO DAILY [facility] Aspirin (Aspirin Chewable) 81 mg PO DAILY [facility] Last Admin: 01/07/17 16:00 Dose: 81 mg Aspirin (Aspirin Chewable) 81 mg PO DAILY [facility] Clopidogrel Bisulfate (Plavix) 75 mg PO DAILY [facility] Enoxaparin Sodium (Lovenox) 40 mg SC DAILY [facility] Last Admin: 01/07/17 09:55 Dose: 40 mg Famotidine (Pepcid) 20 mg PO BID [facility] Last Admin: 01/07/17 19:00 Dose: 20 mg Glimepiride (Amaryl) 2 mg PO TID [facility] Last Admin: 01/07/17 17:18 Dose: 2 mg Home Med (Fosamax) 70 mg PO QWK [facility] Home Med (Liraglutide [Victoza 2-Jorje]) 1.2 mg SQ DAILY [facility] Sodium Chloride (Sodium Chloride 0.9%) 1,000 mls @ 40 mls/hr IV .Q24H [facility] Last Admin: 01/07/17 13:45 Dose: 40 mls/hr Insulin Glargine (Lantus) 30 unit SC HS [facility] Last Admin: 01/07/17 21:46 Dose: 30 unit Levothyroxine Sodium (Synthroid) 100 mcg PO DAILY@0630 [facility] Last Admin: 01/08/17 06:04 Dose: 100 mcg Losartan Potassium (Cozaar) 25 mg PO DAILY [facility] Last Admin: 01/07/17 15:10 Dose: 25 mg Metformin HCl (Glucophage) 1,000 mg PO BID [facility] Last Admin: 01/07/17 17:18 Dose: 1,000 mg Metoprolol Succinate (Toprol Xl) 25 mg PO DAILY [facility] Last Admin: 01/07/17 15:10 Dose: 25 mg Multivitamins (Hexavitamin) 1 tab PO DAILY [facility] Last Admin: 01/07/17 15:10 Dose: 1 tab Ondansetron HCl (Zofran Inj) 4 mg IVP Q8H PRN PRN Reason: Nausea/Vomiting Last Admin: 01/07/17 09:52 Dose: 4 mg Rosuvastatin Calcium (Crestor) 10 mg PO HS [facility] Last Admin: 01/07/17 22:20 Dose: 10 mg Rosuvastatin Calcium (Crestor) 10 mg PO HS [facility] Last Admin: 01/07/17 22:22 Dose: Not Given - Labs Labs: 01/06/17 18:52 01/06/17 18:52 - Constitutional Appears: Well, Older Than Stated Age, Chronically Ill - Head Exam Head Exam: ATRAUMATIC, NORMAL INSPECTION - Eye Exam Eye Exam: PERRL. absent: Scleral icterus - Cardiovascular Exam Cardiovascular Exam: REGULAR RHYTHM, RRR, +S1, +S2. absent: JVD - GI/Abdominal Exam GI & Abdominal Exam: Normal Bowel Sounds. absent: Organomegaly Assessment and Plan - Assessment and Plan (Free Text) Assessment: 2D echo images viewed by me on this visit: Normal LV systolic function. - Assessment and Plan (Free Text) Assessment: Acute Cerebellar vascular accident > No arrythmia on TELE > 2D echo no arrythmogenic substrate > No acute ischemic changes on EKG > Mild anemia, low MCV on CBC > UT ruled out > CT head: no acute pathology > CXR: no signs of CHF or infection > BP is elevated MRI results noted; Neurology to follow up Needs BP and DM control ---> BP targets as per Neuro Dual anti platelet as per neurology Needs high dose of atorvastatin or crestor Insulin sliding scale PT/OT for cerebellar lesions
[2017-01-08] MEDS: Metoprolol Succinate 25 mg XL Tab PO SCH (10:00)
[2017-01-08] MEDS: Enoxaparin 40 mg Syringe SC SCH (10:00)
[2017-01-08] MEDS: Multiple Vitamins Tab PO SCH (10:00)
--- NOTE | 2017-01-08 18:30 | CP.PCM.PN ---
Subjective - Date & Time of Evaluation Date of Evaluation: 01/08/17 Time of Evaluation: 11:40 - Subjective Subjective: clinically same Objective - Vital Signs/Intake and Output Vital Signs (last 24 hours): Temp Pulse Resp BP Pulse Ox 97.7 F 82 20 181/94 H 97 01/08/17 16:00 01/08/17 16:52 01/08/17 16:00 01/08/17 16:52 01/08/17 16:52 Intake and Output: 01/08/17 01/08/17 06:59 18:59 Intake Total 940 Output Total 375 Balance 565 - Medications Medications: Current Medications Acetaminophen/Butalbital/Caffeine (Fioricet) 1 tab PO Q4 PRN PRN Reason: pain Last Admin: 01/07/17 17:17 Dose: 1 tab Amlodipine Besylate (Norvasc) 10 mg PO DAILY [facility] Last Admin: 01/08/17 10:00 Dose: 10 mg Aspirin (Aspirin Chewable) 81 mg PO DAILY [facility] Last Admin: 01/08/17 10:00 Dose: 81 mg Aspirin (Aspirin Chewable) 81 mg PO DAILY [facility] Last Admin: 01/08/17 12:14 Dose: Not Given Clopidogrel Bisulfate (Plavix) 75 mg PO DAILY [facility] Last Admin: 01/08/17 10:00 Dose: 75 mg Enoxaparin Sodium (Lovenox) 40 mg SC DAILY [facility] Last Admin: 01/08/17 10:00 Dose: 40 mg Famotidine (Pepcid) 20 mg PO BID [facility] Last Admin: 01/08/17 17:26 Dose: 20 mg Glimepiride (Amaryl) 2 mg PO TID [facility] Last Admin: 01/08/17 17:27 Dose: 2 mg Home Med (Fosamax) 70 mg PO QWK [facility] Home Med (Liraglutide [Victoza 2-Jorje]) 1.2 mg SQ DAILY [facility] Sodium Chloride (Sodium Chloride 0.9%) 1,000 mls @ 40 mls/hr IV .Q24H [facility] Last Admin: 01/07/17 13:45 Dose: 40 mls/hr Insulin Glargine (Lantus) 30 unit SC HS [facility] Last Admin: 01/07/17 21:46 Dose: 30 unit Levothyroxine Sodium (Synthroid) 100 mcg PO DAILY@0630 [facility] Last Admin: 01/08/17 06:04 Dose: 100 mcg Losartan Potassium (Cozaar) 25 mg PO DAILY [facility] Last Admin: 01/08/17 10:00 Dose: 25 mg Metformin HCl (Glucophage) 1,000 mg PO BID [facility] Last Admin: 01/08/17 17:26 Dose: 1,000 mg Metoprolol Succinate (Toprol Xl) 25 mg PO DAILY [facility] Last Admin: 01/08/17 10:00 Dose: 25 mg Multivitamins (Hexavitamin) 1 tab PO DAILY [facility] Last Admin: 01/08/17 10:00 Dose: 1 tab Ondansetron HCl (Zofran Inj) 4 mg IVP Q8H PRN PRN Reason: Nausea/Vomiting Last Admin: 01/07/17 09:52 Dose: 4 mg Rosuvastatin Calcium (Crestor) 10 mg PO HS [facility] Last Admin: 01/07/17 22:20 Dose: 10 mg Rosuvastatin Calcium (Crestor) 10 mg PO HS [facility] Last Admin: 01/07/17 22:22 Dose: Not Given - Labs Labs: 01/06/17 18:52 01/06/17 18:52 - Constitutional Appears: Well - Head Exam Head Exam: ATRAUMATIC, NORMAL INSPECTION, NORMOCEPHALIC - Eye Exam Eye Exam: EOMI, Normal appearance, PERRL Pupil Exam: NORMAL ACCOMODATION, PERRL - ENT Exam ENT Exam: Mucous Membranes Moist, Normal Exam - Neck Exam Neck Exam: Full ROM, Normal Inspection. absent: Lymphadenopathy - Respiratory Exam Respiratory Exam: Decreased Breath Sounds - Cardiovascular Exam Cardiovascular Exam: REGULAR RHYTHM, +S1, +S2. absent: Murmur - GI/Abdominal Exam GI & Abdominal Exam: Soft, Normal Bowel Sounds. absent: Tenderness - Rectal Exam Rectal Exam: Deferred Assessment and Plan (1) Syncope Status: Acute (2) Vertigo Status: Acute - Assessment and Plan (Free Text) Plan: Patient examined. Chest x-ray normal. EKG shows left axis deviation. Low voltage QRS complex. CT angios chest is not suggestive of pulmonary embolism. CT had suggestive of nonspecific white matter changes. MRI brain suggestive acute left cerebellar infarction involving almost entire cerebellar hemisphere with relative sparing of the deep superior cerebellar white matter. Moderate age-related global parenchymal volume loss. 2D echo normal. Laboratory investigation shows raised random blood sugar on admission. Continue medications for diabetes and hypertension, levothyroxine, aspirin. Continue supportive medications.
[2017-01-08] MEDS: Sodium Chloride 0.9% 1,000 ML IV SCH (21:16)
[2017-01-08] MEDS: (Lantus) Insulin Glargine, Recombinant SC SCH (21:16)
[2017-01-09] MEDS: Levothyroxine 100 MCG TAB PO SCH (06:03)
[2017-01-09] MEDS: Enoxaparin 40 mg Syringe SC SCH (10:29)
[2017-01-09] MEDS: VICTOZA SC SCH (10:29)
[2017-01-09] MEDS: Metoprolol Succinate 25 mg XL Tab PO SCH (10:29)
[2017-01-09] MEDS: Multiple Vitamins Tab PO SCH (10:29)
--- NOTE | 2017-01-09 13:55 | CP.PCM.PN ---
Subjective - Date & Time of Evaluation Date of Evaluation: 01/09/17 Time of Evaluation: 11:40 - Subjective Subjective: clinically same Objective - Vital Signs/Intake and Output Vital Signs (last 24 hours): Temp Pulse Resp BP Pulse Ox 98.0 F 101 H 20 150/90 98 01/09/17 08:21 01/09/17 08:21 01/09/17 08:21 01/09/17 08:21 01/09/17 08:21 Intake and Output: 01/09/17 01/09/17 06:59 18:59 Intake Total 320 Output Total 600 Balance -280 - Medications Medications: Current Medications Acetaminophen/Butalbital/Caffeine (Fioricet) 1 tab PO Q4 PRN PRN Reason: pain Last Admin: 01/07/17 17:17 Dose: 1 tab Amlodipine Besylate (Norvasc) 10 mg PO DAILY [facility] Last Admin: 01/09/17 10:29 Dose: 10 mg Aspirin (Aspirin Chewable) 81 mg PO DAILY [facility] Last Admin: 01/09/17 10:29 Dose: 81 mg Clopidogrel Bisulfate (Plavix) 75 mg PO DAILY [facility] Enoxaparin Sodium (Lovenox) 40 mg SC DAILY [facility] Last Admin: 01/09/17 10:29 Dose: 40 mg Famotidine (Pepcid) 20 mg PO BID [facility] Last Admin: 01/09/17 10:29 Dose: 20 mg Glimepiride (Amaryl) 2 mg PO TID [facility] Last Admin: 01/09/17 13:08 Dose: 2 mg Home Med (Patient's Own Injectable) 1.2 unit SC DAILY [facility] Last Admin: 01/09/17 10:29 Dose: 1.2 unit Sodium Chloride (Sodium Chloride 0.9%) 1,000 mls @ 40 mls/hr IV .Q24H [facility] Last Admin: 01/08/17 21:16 Dose: 40 mls/hr Insulin Glargine (Lantus) 30 unit SC HS [facility] Last Admin: 01/08/17 21:16 Dose: 30 unit Levothyroxine Sodium (Synthroid) 100 mcg PO DAILY@0630 [facility] Last Admin: 01/09/17 06:03 Dose: 100 mcg Losartan Potassium (Cozaar) 25 mg PO DAILY [facility] Last Admin: 01/09/17 10:29 Dose: 25 mg Meclizine HCl (Antivert) 25 mg PO TID [facility] Last Admin: 01/09/17 13:07 Dose: 25 mg Metformin HCl (Glucophage) 1,000 mg PO BID [facility] Last Admin: 01/09/17 10:29 Dose: 1,000 mg Metoprolol Succinate (Toprol Xl) 25 mg PO DAILY [facility] Last Admin: 01/09/17 10:29 Dose: 25 mg Multivitamins (Hexavitamin) 1 tab PO DAILY [facility] Last Admin: 01/09/17 10:29 Dose: 1 tab Ondansetron HCl (Zofran Inj) 4 mg IVP Q8H PRN PRN Reason: Nausea/Vomiting Last Admin: 01/07/17 09:52 Dose: 4 mg Rosuvastatin Calcium (Crestor) 10 mg PO HS [facility] Last Admin: 01/08/17 21:17 Dose: 10 mg - Labs Labs: 01/06/17 18:52 01/06/17 18:52 - Constitutional Appears: Well - Head Exam Head Exam: ATRAUMATIC, NORMAL INSPECTION, NORMOCEPHALIC - Eye Exam Eye Exam: EOMI, Normal appearance, PERRL Pupil Exam: NORMAL ACCOMODATION, PERRL - ENT Exam ENT Exam: Mucous Membranes Moist, Normal Exam - Neck Exam Neck Exam: Full ROM, Normal Inspection. absent: Lymphadenopathy - Respiratory Exam Respiratory Exam: Decreased Breath Sounds - Cardiovascular Exam Cardiovascular Exam: REGULAR RHYTHM, +S1, +S2 - GI/Abdominal Exam GI & Abdominal Exam: Soft, Diminished Bowel Sounds - Rectal Exam Rectal Exam: Deferred Assessment and Plan (1) Syncope Status: Acute (2) Vertigo Status: Acute - Assessment and Plan (Free Text) Plan: Patient examined. The patient clinically the same. Continue aspirin and clopidogrel. Continue antidiabetic and antihypertensive medications. Continue levothyroxine. Continue supportive care.
[2017-01-09] MEDS: (Lantus) Insulin Glargine, Recombinant SC SCH (22:05)
[2017-01-09] MEDS: Sodium Chloride 0.9% 1,000 ML IV SCH (22:05)
[2017-01-10] MEDS: Levothyroxine 100 MCG TAB PO SCH (05:58)
[2017-01-10] MEDS: Enoxaparin 40 mg Syringe SC SCH ×2 (10:42→11:00)
[2017-01-10] MEDS: Multiple Vitamins Tab PO SCH ×2 (10:42→11:01)
[2017-01-10] MEDS: Metoprolol Succinate 25 mg XL Tab PO SCH ×2 (10:43→11:01)
[2017-01-10] MEDS: VICTOZA SC SCH ×2 (10:43→11:00)
[2017-01-10] MEDS: Sodium Chloride 0.9% 1,000 ML IV SCH ×2 (13:42→18:05)
[2017-01-10] MEDS: Naproxen 550 mg Tab PO PRN (18:03)
--- NOTE | 2017-01-10 19:16 | CP.PCM.PN ---
Subjective - Date & Time of Evaluation Date of Evaluation: 01/10/17 Time of Evaluation: 11:00 - Subjective Subjective: clinically same Objective - Vital Signs/Intake and Output Vital Signs (last 24 hours): Temp Pulse Resp BP Pulse Ox 97.8 F 90 20 153/82 H 100 01/10/17 15:00 01/10/17 15:00 01/10/17 15:00 01/10/17 15:00 01/10/17 15:00 Intake and Output: 01/10/17 01/11/17 18:59 06:59 Intake Total 434 Balance 434 - Medications Medications: Current Medications Acetaminophen/Butalbital/Caffeine (Fioricet) 1 tab PO Q4 PRN PRN Reason: pain Last Admin: 01/07/17 17:17 Dose: 1 tab Amlodipine Besylate (Norvasc) 10 mg PO DAILY [facility] Last Admin: 01/10/17 11:01 Dose: 10 mg Aspirin (Aspirin Chewable) 81 mg PO DAILY [facility] Last Admin: 01/10/17 11:01 Dose: 81 mg Clopidogrel Bisulfate (Plavix) 75 mg PO DAILY [facility] Last Admin: 01/10/17 11:01 Dose: 75 mg Enoxaparin Sodium (Lovenox) 40 mg SC DAILY [facility] Last Admin: 01/10/17 11:00 Dose: 40 mg Famotidine (Pepcid) 20 mg PO BID [facility] Last Admin: 01/10/17 17:19 Dose: 20 mg Glimepiride (Amaryl) 2 mg PO TID [facility] Last Admin: 01/10/17 17:19 Dose: 2 mg Home Med (Patient's Own Injectable) 1.2 unit SC DAILY [facility] Last Admin: 01/10/17 11:00 Dose: 1.2 unit Sodium Chloride (Sodium Chloride 0.9%) 1,000 mls @ 40 mls/hr IV .Q24H [facility] Last Admin: 01/10/17 18:05 Dose: Not Given Insulin Glargine (Lantus) 30 unit SC HS [facility] Last Admin: 01/09/17 22:05 Dose: 30 unit Levothyroxine Sodium (Synthroid) 100 mcg PO DAILY@0630 [facility] Last Admin: 01/10/17 05:58 Dose: 100 mcg Losartan Potassium (Cozaar) 25 mg PO DAILY [facility] Last Admin: 01/10/17 11:00 Dose: 25 mg Meclizine HCl (Antivert) 25 mg PO TID [facility] Last Admin: 01/10/17 17:21 Dose: Not Given Metformin HCl (Glucophage) 1,000 mg PO BID [facility] Last Admin: 01/10/17 17:19 Dose: 1,000 mg Metoprolol Succinate (Toprol Xl) 25 mg PO DAILY [facility] Last Admin: 01/10/17 11:01 Dose: 25 mg Multivitamins (Hexavitamin) 1 tab PO DAILY [facility] Last Admin: 01/10/17 11:01 Dose: 1 tab Naproxen (Anaprox Ds) 550 mg PO BID PRN PRN Reason: Pain, moderate (4-7) Last Admin: 01/10/17 18:03 Dose: 550 mg Ondansetron HCl (Zofran Inj) 4 mg IVP Q8H PRN PRN Reason: Nausea/Vomiting Last Admin: 01/07/17 09:52 Dose: 4 mg Rosuvastatin Calcium (Crestor) 10 mg PO HS [facility] Last Admin: 01/09/17 22:05 Dose: 10 mg - Labs Labs: 01/06/17 18:52 01/06/17 18:52 - Constitutional Appears: Well - Head Exam Head Exam: ATRAUMATIC, NORMAL INSPECTION, NORMOCEPHALIC - Eye Exam Eye Exam: EOMI, Normal appearance, PERRL Pupil Exam: NORMAL ACCOMODATION, PERRL - ENT Exam ENT Exam: Mucous Membranes Moist, Normal Exam - Neck Exam Neck Exam: Full ROM, Normal Inspection. absent: Lymphadenopathy - Respiratory Exam Respiratory Exam: Decreased Breath Sounds - Cardiovascular Exam Cardiovascular Exam: REGULAR RHYTHM, +S1, +S2 - GI/Abdominal Exam GI & Abdominal Exam: Soft, Diminished Bowel Sounds - Rectal Exam Rectal Exam: Deferred Assessment and Plan (1) Syncope Status: Acute (2) Vertigo Status: Acute - Assessment and Plan (Free Text) Plan: Patient examined. Patient clinical the same. Continue aspirin and Clopidogrel. Continue antidiabetic and antihypertensive medications. Continue levothyroxine. Continue supportive medications.
[2017-01-10] MEDS: Apap-Butalbital-Caffeine 325-50-40mg Tab PO PRN (20:12)
[2017-01-10] MEDS: (Lantus) Insulin Glargine, Recombinant SC SCH (22:18)
[2017-01-11] MEDS: Sodium Chloride 0.9% 1,000 ML IV SCH ×2 (04:38→17:47)
[2017-01-11] MEDS: Levothyroxine 100 MCG TAB PO SCH (05:52)
[2017-01-11] MEDS: Multiple Vitamins Tab PO SCH (09:41)
[2017-01-11] MEDS: Metoprolol Succinate 25 mg XL Tab PO SCH (09:41)
[2017-01-11] MEDS: VICTOZA SC SCH (09:42)
[2017-01-11] MEDS: Enoxaparin 40 mg Syringe SC SCH (09:42)
[2017-01-11] MEDS: Apap-Butalbital-Caffeine 325-50-40mg Tab PO PRN ×3 (09:44→21:52)
--- NOTE | 2017-01-11 11:06 | CARD ---
APPROVED REPORT EKG Measurement Heart [id number] <Conclusion> Normal sinus rhythm Left axis deviation Low voltage QRS Inferior infarct, age undetermined Abnormal ECG
--- NOTE | 2017-01-11 20:40 | CP.PCM.PN ---
Subjective - Date & Time of Evaluation Date of Evaluation: 01/11/17 Time of Evaluation: 10:00 - Subjective Subjective: clinically same Objective - Vital Signs/Intake and Output Vital Signs (last 24 hours): Temp Pulse Resp BP Pulse Ox 97.5 F L 82 20 131/86 99 01/11/17 15:20 01/11/17 16:00 01/11/17 15:20 01/11/17 15:20 01/11/17 15:20 Intake and Output: 01/11/17 01/12/17 18:59 06:59 Intake Total 509 Balance 509 - Medications Medications: Current Medications Acetaminophen/Butalbital/Caffeine (Fioricet) 1 tab PO Q4 PRN PRN Reason: pain Last Admin: 01/11/17 15:39 Dose: 1 tab Amlodipine Besylate (Norvasc) 10 mg PO DAILY [facility] Last Admin: 01/11/17 09:41 Dose: 10 mg Aspirin (Aspirin Chewable) 81 mg PO DAILY [facility] Last Admin: 01/11/17 09:41 Dose: 81 mg Clopidogrel Bisulfate (Plavix) 75 mg PO DAILY [facility] Last Admin: 01/11/17 09:42 Dose: 75 mg Enoxaparin Sodium (Lovenox) 70 mg SC Q12 [facility] Famotidine (Pepcid) 20 mg PO BID [facility] Last Admin: 01/11/17 17:47 Dose: 20 mg Glimepiride (Amaryl) 2 mg PO TID [facility] Last Admin: 01/11/17 17:47 Dose: 2 mg Home Med (Patient's Own Injectable) 1.2 unit SC DAILY [facility] Last Admin: 01/11/17 09:42 Dose: 1.2 unit Sodium Chloride (Sodium Chloride 0.9%) 1,000 mls @ 40 mls/hr IV .Q24H [facility] Last Admin: 01/11/17 17:47 Dose: Not Given Insulin Glargine (Lantus) 30 unit SC HS [facility] Last Admin: 01/10/17 22:18 Dose: 30 unit Levothyroxine Sodium (Synthroid) 100 mcg PO DAILY@0630 [facility] Last Admin: 01/11/17 05:52 Dose: 100 mcg Losartan Potassium (Cozaar) 25 mg PO DAILY [facility] Last Admin: 01/11/17 09:42 Dose: 25 mg Meclizine HCl (Antivert) 25 mg PO TID [facility] Last Admin: 01/11/17 17:50 Dose: Not Given Metformin HCl (Glucophage) 1,000 mg PO BID [facility] Last Admin: 01/11/17 17:47 Dose: 1,000 mg Metoprolol Succinate (Toprol Xl) 25 mg PO DAILY [facility] Last Admin: 01/11/17 09:41 Dose: 25 mg Multivitamins (Hexavitamin) 1 tab PO DAILY [facility] Last Admin: 01/11/17 09:41 Dose: 1 tab Naproxen (Anaprox Ds) 550 mg PO BID PRN PRN Reason: Pain, moderate (4-7) Last Admin: 01/10/17 18:03 Dose: 550 mg Ondansetron HCl (Zofran Inj) 4 mg IVP Q8H PRN PRN Reason: Nausea/Vomiting Last Admin: 01/07/17 09:52 Dose: 4 mg Rosuvastatin Calcium (Crestor) 10 mg PO HS [facility] Last Admin: 01/10/17 22:18 Dose: 10 mg - Labs Labs: 01/06/17 18:52 01/06/17 18:52 - Constitutional Appears: Well - Head Exam Head Exam: ATRAUMATIC, NORMAL INSPECTION, NORMOCEPHALIC - Eye Exam Eye Exam: EOMI, Normal appearance, PERRL Pupil Exam: NORMAL ACCOMODATION, PERRL - ENT Exam ENT Exam: Mucous Membranes Moist, Normal Exam - Neck Exam Neck Exam: Full ROM, Normal Inspection. absent: Lymphadenopathy - Respiratory Exam Respiratory Exam: Decreased Breath Sounds - Cardiovascular Exam Cardiovascular Exam: REGULAR RHYTHM, +S1, +S2. absent: Murmur - GI/Abdominal Exam GI & Abdominal Exam: Soft, Normal Bowel Sounds. absent: Tenderness - Rectal Exam Rectal Exam: Deferred Assessment and Plan (1) Syncope Status: Acute (2) Vertigo Status: Acute - Assessment and Plan (Free Text) Plan: Patient examined. Patient better. Continue aspirin and clopidogrel. Continue levothyroxine, antidiabetic and antihypertensive medications. Continue supportive care.
[2017-01-11] MEDS: (Lantus) Insulin Glargine, Recombinant SC SCH (21:49)
[2017-01-11] MEDS: Enoxaparin 80 mg Syringe SC SCH (21:49)
[2017-01-12] MEDS: Levothyroxine 100 MCG TAB PO SCH (05:59)
[2017-01-12] MEDS: Naproxen 550 mg Tab PO PRN ×2 (07:04→18:20)
[2017-01-12 08:33] VITALS: O2SAT 100
[2017-01-12] MEDS: VICTOZA SC SCH (11:16)
[2017-01-12] MEDS: Multiple Vitamins Tab PO SCH (11:17)
[2017-01-12] MEDS: Metoprolol Succinate 25 mg XL Tab PO SCH (11:17)
[2017-01-12] MEDS: Enoxaparin 80 mg Syringe SC SCH ×2 (11:18→22:14)
[2017-01-12 13:56] LABS: BASO # 0.1 K/uL (0.0-0.2); BASO % 0.5 % (0.0-2.0); EOS # 0.5 K/uL (0.0-0.7); EOS % 4.5 % (0.0-4.0); HEMATOCRIT 27.2 % (35.0-51.0); LYMPH # 1.3 K/uL (1.0-4.3); LYMPH % 11.6 % (20.0-40.0); MEAN CELL VOLUME 75.3 fL (80.0-94.0); MEAN CORPUSCULAR HEMOGLOBIN 24.2 pg (27.0-31.0); MEAN CORPUSCULAR HGB CONC 32.2 g/dL (33.0-37.0); MEAN PLATELET VOLUME 8.5 fL (7.2-11.7); MONO # 1.1 K/uL (0.0-0.8); MONO % 10.2 % (0.0-10.0); RED CELL DISTRIBUTION WIDTH 15.4 % (11.5-14.5); WHITE BLOOD COUNT 11.1 K/uL (4.8-10.8)
[2017-01-12 14:26] LABS: ALKALINE PHOSPHATASE 55 U/L (38-126); ALT/SGPT 30 U/L (21-72); AST/SGOT 22 U/L (17-59); BILIRUBIN,TOTAL 0.9 mg/dL (0.2-1.3); BLOOD UREA NITROGEN 15 mg/dL (9-20); CALCIUM 7.5 mg/dl (8.6-10.4); CARBON DIOXIDE 21 mmol/L (22-30); CHLORIDE 98 mmol/L (98-107); GFR AFRICAN-AMERICAN > 60; GLUCOSE,RANDOM 174 mg/dL (75-110); POTASSIUM 3.1 mmol/L (3.6-5.2); SODIUM 129 mmol/L (132-148); TOTAL PROTEIN 5.3 g/dL (6.3-8.3)
[2017-01-12 14:31] LABS: ALB/GLOB RATIO 1.4 (1.0-2.1)
[2017-01-12] MEDS ORDERED: Potassium Chloride 20 mEq ER Tab PO SCH (15:30)
--- NOTE | 2017-01-12 17:04 | CP.PCM.PN ---
Subjective - Date & Time of Evaluation Date of Evaluation: 01/12/17 Time of Evaluation: 17:02 - Subjective Subjective: PT SEEN AND EXAMINED TODAY, RESP EASY AND UNLABORED, NAD Objective - Vital Signs/Intake and Output Vital Signs (last 24 hours): Temp Pulse Resp BP Pulse Ox 97.8 F 86 18 124/79 100 01/12/17 07:20 01/12/17 12:20 01/12/17 07:20 01/12/17 07:20 01/12/17 07:20 Intake and Output: 01/12/17 01/12/17 06:59 18:59 Intake Total 920 Output Total 225 Balance -225 920 - Medications Medications: Current Medications Acetaminophen/Butalbital/Caffeine (Fioricet) 1 tab PO Q4 PRN PRN Reason: pain Last Admin: 01/11/17 21:52 Dose: 1 tab Amlodipine Besylate (Norvasc) 10 mg PO DAILY [facility] Last Admin: 01/12/17 11:17 Dose: 10 mg Aspirin (Aspirin Chewable) 81 mg PO DAILY [facility] Last Admin: 01/12/17 11:17 Dose: 81 mg Clopidogrel Bisulfate (Plavix) 75 mg PO DAILY [facility] Last Admin: 01/12/17 11:17 Dose: 75 mg Enoxaparin Sodium (Lovenox) 70 mg SC Q12 [facility] Last Admin: 01/12/17 11:18 Dose: 70 mg Famotidine (Pepcid) 20 mg PO BID [facility] Last Admin: 01/12/17 11:19 Dose: 20 mg Glimepiride (Amaryl) 2 mg PO TID [facility] Last Admin: 01/12/17 13:54 Dose: 2 mg Home Med (Patient's Own Injectable) 1.2 unit SC DAILY [facility] Last Admin: 01/12/17 11:16 Dose: 1.2 unit Sodium Chloride (Sodium Chloride 0.9%) 1,000 mls @ 40 mls/hr IV .Q24H [facility] Last Admin: 01/11/17 17:47 Dose: Not Given Insulin Glargine (Lantus) 30 unit SC HS [facility] Last Admin: 01/11/17 21:49 Dose: 30 unit Levothyroxine Sodium (Synthroid) 100 mcg PO DAILY@0630 [facility] Last Admin: 01/12/17 05:59 Dose: 100 mcg Losartan Potassium (Cozaar) 25 mg PO DAILY [facility] Last Admin: 01/12/17 11:17 Dose: 25 mg Meclizine HCl (Antivert) 25 mg PO TID [facility] Last Admin: 01/12/17 13:54 Dose: Not Given Metformin HCl (Glucophage) 1,000 mg PO BID [facility] Last Admin: 01/12/17 11:19 Dose: 1,000 mg Metoprolol Succinate (Toprol Xl) 25 mg PO DAILY [facility] Last Admin: 01/12/17 11:17 Dose: 25 mg Multivitamins (Hexavitamin) 1 tab PO DAILY [facility] Last Admin: 01/12/17 11:17 Dose: 1 tab Naproxen (Anaprox Ds) 550 mg PO BID PRN PRN Reason: Pain, moderate (4-7) Last Admin: 01/12/17 07:04 Dose: 550 mg Ondansetron HCl (Zofran Inj) 4 mg IVP Q8H PRN PRN Reason: Nausea/Vomiting Last Admin: 01/07/17 09:52 Dose: 4 mg Potassium Chloride (K-Dur 20 Meq Er Tab) 40 meq PO DAILY [facility] Rosuvastatin Calcium (Crestor) 10 mg PO HS [facility] Last Admin: 01/11/17 22:37 Dose: 10 mg - Labs Labs: 01/12/17 13:52 01/12/17 13:52
[2017-01-12] MEDS: Sodium Chloride 0.9% 1,000 ML IV SCH (18:25)
[2017-01-12 19:01] VITALS: BP 122/75; PULSE 80; RESP 20; TEMP 98
[2017-01-12] MEDS ORDERED: Potassium Chloride 20 mEq ER Tab PO STA (19:39)
--- NOTE | 2017-01-12 20:16 | CP.PCM.PN ---
Subjective - Date & Time of Evaluation Date of Evaluation: 01/12/17 Time of Evaluation: 09:20 - Subjective Subjective: clinically same Objective - Vital Signs/Intake and Output Vital Signs (last 24 hours): Temp Pulse Resp BP Pulse Ox 98.0 F 80 20 122/75 100 01/12/17 15:34 01/12/17 15:34 01/12/17 15:34 01/12/17 15:34 01/12/17 15:34 Intake and Output: 01/12/17 01/13/17 18:59 06:59 Intake Total 920 Balance 920 - Medications Medications: Current Medications Acetaminophen/Butalbital/Caffeine (Fioricet) 1 tab PO Q4 PRN PRN Reason: pain Last Admin: 01/11/17 21:52 Dose: 1 tab Amlodipine Besylate (Norvasc) 10 mg PO DAILY [facility] Last Admin: 01/12/17 11:17 Dose: 10 mg Aspirin (Aspirin Chewable) 81 mg PO DAILY [facility] Last Admin: 01/12/17 11:17 Dose: 81 mg Clopidogrel Bisulfate (Plavix) 75 mg PO DAILY [facility] Last Admin: 01/12/17 11:17 Dose: 75 mg Enoxaparin Sodium (Lovenox) 70 mg SC Q12 [facility] Last Admin: 01/12/17 11:18 Dose: 70 mg Famotidine (Pepcid) 20 mg PO BID [facility] Last Admin: 01/12/17 18:20 Dose: 20 mg Glimepiride (Amaryl) 2 mg PO TID [facility] Last Admin: 01/12/17 18:20 Dose: 2 mg Home Med (Patient's Own Injectable) 1.2 unit SC DAILY [facility] Last Admin: 01/12/17 11:16 Dose: 1.2 unit Sodium Chloride (Sodium Chloride 0.9%) 1,000 mls @ 40 mls/hr IV .Q24H [facility] Last Admin: 01/12/17 18:25 Dose: Not Given Insulin Glargine (Lantus) 30 unit SC HS [facility] Last Admin: 01/11/17 21:49 Dose: 30 unit Levothyroxine Sodium (Synthroid) 100 mcg PO DAILY@0630 [facility] Last Admin: 01/12/17 05:59 Dose: 100 mcg Losartan Potassium (Cozaar) 25 mg PO DAILY [facility] Last Admin: 01/12/17 11:17 Dose: 25 mg Meclizine HCl (Antivert) 25 mg PO TID [facility] Last Admin: 01/12/17 18:26 Dose: Not Given Metformin HCl (Glucophage) 1,000 mg PO BID [facility] Last Admin: 01/12/17 18:20 Dose: 1,000 mg Metoprolol Succinate (Toprol Xl) 25 mg PO DAILY [facility] Last Admin: 01/12/17 11:17 Dose: 25 mg Multivitamins (Hexavitamin) 1 tab PO DAILY [facility] Last Admin: 01/12/17 11:17 Dose: 1 tab Naproxen (Anaprox Ds) 550 mg PO BID PRN PRN Reason: Pain, moderate (4-7) Last Admin: 01/12/17 18:20 Dose: 550 mg Ondansetron HCl (Zofran Inj) 4 mg IVP Q8H PRN PRN Reason: Nausea/Vomiting Last Admin: 01/07/17 09:52 Dose: 4 mg Potassium Chloride (K-Dur 20 Meq Er Tab) 40 meq PO DAILY [facility] Last Admin: 01/12/17 18:20 Dose: 40 meq Rosuvastatin Calcium (Crestor) 10 mg PO HS [facility] Last Admin: 01/11/17 22:37 Dose: 10 mg - Labs Labs: 01/12/17 13:52 01/12/17 13:52 - Constitutional Appears: Well - Head Exam Head Exam: ATRAUMATIC, NORMAL INSPECTION, NORMOCEPHALIC - Eye Exam Eye Exam: EOMI, Normal appearance, PERRL Pupil Exam: NORMAL ACCOMODATION, PERRL - ENT Exam ENT Exam: Mucous Membranes Moist, Normal Exam - Neck Exam Neck Exam: Full ROM, Normal Inspection. absent: Lymphadenopathy - Respiratory Exam Respiratory Exam: Decreased Breath Sounds - Cardiovascular Exam Cardiovascular Exam: REGULAR RHYTHM, +S1, +S2 - GI/Abdominal Exam GI & Abdominal Exam: Soft, Diminished Bowel Sounds - Rectal Exam Rectal Exam: Deferred Assessment and Plan (1) Syncope Status: Acute (2) Vertigo Status: Acute - Assessment and Plan (Free Text) Plan: Patient examined. Patient better. Continue aspirin and clopidogrel. Continue levothyroxine, antidiabetic and antihypertensive medications. Continue supportive care.
[2017-01-12] MEDS: Apap-Butalbital-Caffeine 325-50-40mg Tab PO PRN (20:22)
[2017-01-12] MEDS: (Lantus) Insulin Glargine, Recombinant SC SCH (22:14)
[2017-01-13] MEDS ORDERED: FOSAMAX 70 MG PO SCH (10:00)
--- NOTE | 2017-01-17 12:21 | VASCLAB ---
PROCEDURE: HISTORY: CVA COMPARISON: None available. TECHNIQUE: Grayscale and duplex Doppler evaluation of the cervical carotid and vertebral arteries were performed. The common carotid, carotid bifurcations and cervical Internal Carotid Artery (ICA) and proximal External Carotid Artery (ECA) were evaluated. The vertebral arteries were evaluated for gross patency and flow direction. Report prepared by MIKAELA Shaw FINDINGS: RIGHT CAROTID ARTERIES: 1. Common Carotid Artery: No significant focal plaque formation of the right common carotid artery. Maximum Peak Systolic velocity: 70 cm/sec: End-diastolic velocity 15 cm/sec. 2. Carotid Bifurcation: plaque formation. Maximum Peak Systolic velocity: 49 cm/sec: End-diastolic velocity 0 cm/sec. 3. Internal Carotid Artery: Plaque description: Minimal calcific 3.1. Proximal Segment: Peak systolic velocity 75 cm/sec: End-diastolic velocity 26 cm/sec - % stenosis 0-15% 3.2. Middle Segment: Peak systolic velocity 106 cm/sec: End-diastolic velocity 26 cm/sec - % stenosis 0-15% 3.3. Distal Segment: Peak systolic velocity 46 cm/sec: End-diastolic velocity 14 cm/sec - % stenosis 0-15% 4. External Carotid Artery: No significant focal plaque formation. Peak systolic velocity 106 cm/sec 5. ICA/CCA Ratio: 1.9 LEFT CAROTID ARTERIES: 1. Common Carotid Artery: No significant focal plaque formation of the left common carotid artery. Maximum Peak Systolic velocity: 65 cm/sec: End-diastolic velocity 10 cm/sec. 2. Carotid Bifurcation: plaque formation. Maximum Peak Systolic velocity: 45 cm/sec: End-diastolic velocity 12 cm/sec. 3. Internal Carotid Artery: Plaque description: Minimal calcific 3.1. Proximal Segment: Peak systolic velocity 47 cm/sec: End-diastolic velocity 16 cm/sec - % stenosis 0-15% 3.2. Middle Segment: Peak systolic velocity 41 cm/sec: End-diastolic velocity 13 cm/sec - % stenosis 0-15% 3.3. Distal Segment: Peak systolic velocity 56 cm/sec: End-diastolic velocity 15 cm/sec - % stenosis 0-15% 4. External Carotid Artery: No significant focal plaque formation. Peak systolic velocity 97 cm/sec 5. ICA/CCA Ratio: 1.0 VERTEBRAL ARTERIES: 1. Right Vertebral Artery: The right vertebral artery flow direction is antegrade. 2. Left Vertebral Artery: The left vertebral artery flow direction is antegrade. OTHER FINDINGS: 1. Right Brachial Blood pressure: Unable to obtain due to IV lines. 2. Left Brachial Blood pressure: 150 mmHg. IMPRESSION: RIGHT: Duplex scan does not suggest hemodynamically significant stenosis of the right extracranial carotid arteries. LEFT: Duplex scan does not suggest hemodynamically significant stenosis of the left extracranial carotid arteries.
== END 2017-01-13 02:40 | DRG 66 ==
LOC: C.ER 18:02 → C.9E 22:49 → C.6T 01-07 00:25
PROVIDERS: ADMIT Internal Medicine Nephrology; ATTEND Internal Medicine Nephrology
DX: I63.8 Other cerebral infarction (principal); E10.65 Type 1 diabetes mellitus with hyperglycemia; D64.9 Anemia, unspecified; I10 Essential (primary) hypertension; E03.9 Hypothyroidism, unspecified; E78.5 Hyperlipidemia, unspecified; R55 Syncope and collapse